=== PATIENT | female | born 1945 | race Caucasian/White ===

== ENCOUNTER 2019-11-27 03:46 | Observation (INO) ==
[2019-11-27 04:08] VITALS: BMI 34.0
--- NOTE | 2019-11-27 04:40 | DR.EXTPAIN ---
HPI Time seen Time Seen by Provider: 11/27/19 04:40 PCP Primary Care Physician: PEGGY HPI Comment HPI Comment: PATIENT IS 73YR OLD FEMALE IN ER WITH RIGHT SHOULDER PAIN AND RIGHT FOREHEAD BRUISING AFTER FALLING DOWN AT HOME AND HITTING HER RIGHT SIDE. BP ELEVATED IN ER. DENIES DIZZINESS OR CHEST PAIN. SHE SAID FALL TINY ACCIDENT. CANNOT MOVE HER RIGHT SHOULDER. NON COMPLAINT WITH BP MEDICATION. Complaint/Symptoms Chief Complaint Doctor Comments: FELL, RIGHT SHOULDER PAIN AND RIGHT FOREHEAD BRUISING. BP ELEVATED IN ER. Chief Complaint:: PT STATES SHE FELL AT HOME AND COMPLAINTS OF RIGHT SHOULDER PAIN THAT HASNT GOTTEN ANY BETTER SHE TOUGHT THAT IT WOULDVE GOTTEN BETTER BY NOW. DAUGHTER STATES SHE CALLED HER AROUND 0130 AM PT NOTED TO HAVE ELEVATED BP IN TRIAGE BUT FAMILY STATES NON COMPLIANT WITH BP MEDICATIONS, PT STATES SHE DIDNT TAKE BP MEDICATION LAST NIGHT UNK WHAT THE NAME OF BP MEDICATION WAS. Self Treatment fo Chief Complaint: N/A Nurses notes reviewed Nurses Notes Review: Yes Source History Provided: Patient Mode of arrival Mode of Arrival: Ambulatory Timing Onset of Chief Complaint: 11/27/19 Context History of: Arthritis Associated signs and symptoms Associated Signs and Symptoms: Pain, Swelling and Bruising PMH PMH Past Medical History: Yes Past Medical History: Anxiety, Arthritis, Depression, Dyslipidemia, Hypertensio n, Hypothyroidism and [place] Past Medical History Comment: BLOOD CLOT Past Surgical History: Yes Surgical History: Hysterectomy and Ortho Surgery Past Surgical History Comment: BILATERL KNEE Family History History of Family Medical Conditions: No (UNK) Social History Does patient currently use any type of tobacco product: No Have you used tobacco products in the last 12 months: No Type of Tobacco Use: None Does any household member use tobacco: No Alcohol Use: None Do you use any recreational Drugs:: No Lives With: Spouse Lives Where: Home infectious screening In the last 2 months have you had wt loss of >10#?: NO Have you had fever, night sweats or hemotysis?: No Have you traveled outside the country in the last 6 months?: No Isolation: Standard ROS Review of Systems Constitutional: No Symptoms Reported and See HPI; negative Fever, Weakness and Fatigue Eyes: See HPI; negative Eye Pain ENTM: No Symptoms Reported and See HPI; negative Nose Discharge and Nose Congestion Respiratoy: No Symptoms Reported and See HPI; negative Moist Cough, Short of Breath and Wheezing Cardiovascular: No Symptoms Reported and See HPI; negative Chest Pain, Palpitations and Syncope Gastrointestinal/Abdominal: No Symptoms Reported, See HPI and Abdominal Pain; negative Diarrhea, Nausea and Vomiting Genitourinary: No Symptoms Reported and See HPI; negative Dysuria and Hematuria Neurological: See HPI and Headache; negative Weakness and Dizziness Musculoskeletal: See HPI and Shoulder (RIGHT SHOULDER PAIN.) Integumentary: See HPI and Bruises; negative Change in Color, Rash and Juandice Hematologic/Lymphatic: See HPI and Easy Bruising; negative Swollen Glands Endocrine: No Symptoms Reported and See HPI; negative Increased Thirst and Increased Urine Psychiatric: No Symptoms Reported and See HPI All Other Systems: Reviewed and Negative PE Vital Signs Vitals: Temperature 97.0 F Pulse Rate 82 Respiratory Rate 18 Blood Pressure [Left Arm] 178/96 Blood Pressure 223/109 O2 Sat by Pulse Oximetry 91 General Limitations: No Limitations General Appearance: Alert and In No Apparent Distress Head Head Exam: Other (BRUISING AND TENDERNESS RIGHT FOREHEAD.) Eyes Eye exam: Normal Appearance; negative Scleral Icterus and Conjunctival Injection ENT ENT Exam: Normal Exam, Normal Oropharynx, Normal External Ear Exam and TM's Normal Bilaterally Neck Neck Exam: Normal Inspection and Trachea Midline; negative Tenderness and Lymphadenopathy Chest Chest Inspection: Normal Inspection and Symmetric Chest Wall Rise; negative Tenderness Respiratory Respiratory Exam: Normal Lung Sounds Bilat; negative Accessory Muscle Use, Chest Wall Tenderness and Respiratory Distress Respiratory Exam: Bilateral: Rhonchi and Lower: Rhonchi Cardiovascular Cardiovascular Exam: Regular Rate, Normal Rhythm and Normal Heart Sounds Abdominal Exam Abdominal Exam: Normal Inspection, Normal Bowel Sounds and Soft; negative Tenderness Extremities Extremities Exam: Normal Inspection and Tenderness (RIGHT SHOULDER SWOLLEN AND TENDER. ROM DECREASED.) Upper Extremities Shoulder Exam: Tenderness and Swelling; negative Full ROM Back Back Exam: Normal Inspection Neurological Neurological Exam: Alert, Oriented X3 and CN II-XII Intact; negative Motor Sensory Deficit Psychiatric Psychiatric Exam: Normal Affect and Normal Mood Skin Skin Exam: Erythema and Other (BRUISING.) MDM Differential Diagnosis Differential Diagnosis: Contusion, Fracture, Sprain and Other (CLOSED HEAD INJURY.) COURSE Treatment Treatment: SEE ORDERS. MORPHIN 4MG IV AND ZOFRAN 4MG IV AND CLONIDINE 0.1MG PO X2. Education/Counseling Education/Counseling: Patient Educated On: Diagnosis Education Comments: SEE ORDERS. ROR Labs Reviewed Result Diagrams: 11/29/19 05:22 11/29/19 05:22 XRAY XRAY Interpreted by: Radiologist (REPORT NOTED AND DISCUSSED WITH PATIENT.) and Self ( PER RADIOLOGIST.) Opioid Opioid Risk Tool Age (Rishabh box if 16-45): No History of Preadolescent Sexual Abuse: No Total: 0 Total Score Risk Category: Low Risk Copyright: Chuck RODAS predicting aberrant behaviors Diagnosis Discharge Problem: At risk for inadequate pain control Fracture of right shoulder Qualifiers: Encounter type: initial encounter Fracture type: closed Qualified Code(s): S42.91XA - Fracture of right shoulder girdle, part unspecified, initial encounter for closed fracture Contusion of scalp Qualifiers: Encounter type: initial encounter Qualified Code(s): S00.03XA - Contusion of scalp, initial encounter Hypertension Qualifiers: Hypertension type: essential hypertension Qualified Code(s): I10 - Essential (primary) hypertension Instructions Forms: Excuse From Work Patient Portal
[2019-11-27] MEDS ORDERED: CATAPRES TAB 0.1 MG PO ONE ×2 (05:02→05:52)
[2019-11-27] MEDS ORDERED: CATAPRES TAB 0.1 MG ONE ×2 (05:09→05:53)
--- NOTE | 2019-11-27 06:01 | RAD ---
HISTORYFall, right shoulder painSTUDYSHOULDER, RIGHT two viewsCOMPARISONNoneFINDINGSThe clavicle, AC joint, scapula, and glenohumeral joints are intact. There is a transverse fracture of the humeral neck with medial displacement of the distal fracture fragment. There is also avulsion of the greater tuberosity.IMPRESSIONDisplaced transverse fracture humeral neckAvulsion fracture greater tuberosity of the humerusElectronically signed by: KOREY CONTRERAS (Nov 27, 2019 06:00:00)
--- NOTE | 2019-11-27 06:03 | CT ---
CT head without contrastIndication: Right shoulder pain after fall. HypertensionTECHNIQUEAxial images from the skullbase to the vertex without contrast. Coronal and sagittal reformats provided.COMPARISONApril 2017 head CTFINDINGSReview of bone windows shows no osseous lesion. The visualized paranasal sinuses and mastoid air cells are clear. There is no acute intracranial hemorrhage, mass or mass effect. No extra-axial fluid collection or abnormal area of hypoattenuation to suggest acute infarction is seen. 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 Scattered periventricular white matter changes are noted.IMPRESSION:1. No acute intracranial hemorrhage2. Atrophy and microangiopathy, similar to the priorElectronically signed by: PHAN SCHREIBER (Nov 27, 2019 06:01:50)
[2019-11-27] MEDS ORDERED: MORPHINE SULFATE INJ 4 MG IM ONE (06:37)
[2019-11-27] MEDS ORDERED: ZOFRAN INJ 4 MG VIAL IM ONE (06:38)
[2019-11-27] MEDS ORDERED: ZOFRAN INJ 4 MG VIAL ONE (06:40)
[2019-11-27] MEDS ORDERED: MORPHINE SULFATE INJ 4 MG ONE (06:41)
[2019-11-27] MEDS ORDERED: ZOFRAN INJ 4 MG VIAL IVP PRN (08:03)
[2019-11-27] MEDS ORDERED: MORPHINE SULFATE INJ 2 MG INJ IVP PRN (08:03)
[2019-11-27] MEDS ORDERED: PERCOCET TAB 5/325 MG PO PRN (10:48)
[2019-11-27] MEDS ORDERED: TORADOL 30 MG VIAL ONE (11:08)
[2019-11-27] MEDS: TORADOL 30 MG VIAL IVP SCH ×3 (11:26→22:09)
[2019-11-27] MEDS: NS 1000 ML 1,000 ML IV SCH ×3 (11:26→22:09)
[2019-11-27 13:28] LABS: BASOPHILS % (AUTO) 0.3 % (0.2-1.0); EOSINOPHILS # (AUTO) 0.1 x10^3/uL (0.0-0.2); EOSINOPHILS % (AUTO) 0.9 % (0.9-2.9); HEMATOCRIT 31.6 % (36.0-47.0); HEMOGLOBIN 10.6 g/dL (12.0-16.0); LYMPHOCYTES # (AUTO) 1.7 X10^3/uL (1.3-2.9); LYMPHOCYTES % (AUTO) 19.1 % (21.0-51.0); MEAN CORPUSCULAR HEMOGLOBIN 29.9 pg (27.0-34.0); MEAN CORPUSCULAR HGB CONC 33.6 g/dL (33.0-35.0); MEAN CORPUSCULAR VOLUME 89.1 fL (80.0-100.0); MEAN PLATELET VOLUME 8.9 fL (7.4-11.0); MONOCYTES % (AUTO) 11.4 % (0.0-13.0); NEUTROPHILS # (AUTO) 6.2 x10^3/uL (2.2-4.8); NEUTROPHILS % (AUTO) 68.3 % (42.0-75.0); PLATELET COUNT 223 X10^3/uL (150.0-450.0); RED BLOOD COUNT 3.54 X10^6/uL (3.5-5.4); RED CELL DISTRIBUTION WIDTH 16.6 % (11.6-16.5); WHITE BLOOD COUNT 9.1 X10^3/uL (3.6-10.0)
[2019-11-27 13:36] LABS: ALBUMIN 2.9 g/dL (3.4-5.0); CALCIUM 7.7 mg/dL (8.5-10.1); CARBON DIOXIDE 27.2 mmol/L (21-32); COR CA(FOR HYPOALB) 8.6 mg/dL (8.5-10.1); CREATININE 1.5 mg/dL (0.55-1.02); TOTAL PROTEIN 6.2 g/dL (6.4-8.2)
[2019-11-27] MEDS: LOVENOX INJ 30 MG SYR SC SCH (14:50)
--- NOTE | 2019-11-27 22:50 | DR.H&P ---
H&P - History & Physical for Day of: H&P Date: 11/27/19 - Chief Complaint Chief Complaint: RIGHT SHOULDER PAIN - History of Present Illness History of Present Illness: IS A 73 YEAR OLD PATIENT OF OURS WHO PRESENTED TO THE ER WITH COMPLAINTS OF RIGHT SHOULDER PAIN AFTER A FALL ONE NIGHT PRIOR TO ARRIVAL. ON ARRIVAL TO THE ER, VITALS WERE 97.0-82-20-91%RA-223/109. PATIENT DOES HAVE A HISTORY OF HTN AND REPORTS COMPLIANCE WITH HER MEDICATIONS. LABS WERE OBTAINED. ABNORMAL LAB VALUES INCLUDE THE FOLLOWING: HGB 10.6, HCT 31.6, BUN 23, CREATININE 1.50, GLUCOSE 126, CALCIUM 7.7, TOTAL PROTEIN 6.2, ALBUMIN 2.9. A BRAIN CT WAS OBTAINED AND REVEALED: 1. No acute intracranial hemorrhage 2. Atrophy and microangiopathy, similar to the prior. A RIGHT SHOULDER XRAY WAS OBTAINED AND REVEALED: Displaced transverse fracture humeral neck. Avulsion fracture greater tuberosity of the humerus. SHE WAS GIVEN MORPHINE 4MG IM X 1, ZOFRAN 4MG IM X 1, AND CATAPRES 0.1MG PO X 2 DOSES. ONLY SLIGHT IMPROVEMENT IN PAIN NOTED. SHOULDER WAS IMMOBILIZED AND PATIENT WAS ADMITTED TO THE HOSPITALS FOR FURTHER EVALUATION AND TREATMENT OF RIGHT SHOULDER FRACTURE AND INTRACTABLE PAIN. SHE WAS STARTED ON NS AT KVO, ZOFRAN 4MG IV Q8H PRN, MORPHINE 2MG IV Q4H PRN, LOVENOX 30MG SC DAILY, TORADOL 30MG IV Q6H PRN, AND PERCOCET 5/325MG PO Q6H PRN. OTHERWISE, WE WILL FOLLOW UP WITH AM LABS AND CONTINUE TO MONITOR. - Past Medical History Past Medical History: NE, Hypertension, Dyslipidemia, Depression, Anxiety, Hypothyroidism, Arthritis - Past Surgical History Surgical History: Hysterectomy, Ortho Surgery - Social History Does patient currently use any type of tobacco product: No (quit 23 years ago) Have you used tobacco products in the last 12 months: No Type of Tobacco Use: None Does any household member use tobacco: No Alcohol Use: None - Medications Home Medications: atorvastatin [From Lipitor] Allergy (Verified 11/27/19 04:08) CONTINUE taking the following medications hydroxychloroquine 200 mg PO BID 11/27/19 [History] - Review of Systems Constitutional: Weakness Eyes: No Symptoms Reported ENT: No Symptoms Reported Respiratory: No Symptoms Reported Cardiovascular: Light Headedness Gastrointestinal: No Symptoms Reported Genitourinary: No Symptoms Reported Musculoskeletal: See HPI, Shoulder Pain (RIGHT SHOULDER PAIN ) Skin: No Symptoms Reported Neurological: Weakness - Physical Exam Vital Signs: Temperature 98.6 F Pulse Rate [Brachial] 72 Pulse Rate 82 Respiratory Rate 15 Blood Pressure [Left Arm] 108/54 Blood Pressure 223/109 O2 Sat by Pulse Oximetry 98 Oriented: Normal Eyes: Normal Ear: Normal Nose: Normal Throat: Normal Respiratory: Diminished Throughout Cardiovascular: Normal : Normal Auscultation: Bowel Sounds: Normal Palpation: Normal Tenderness: Normal Skin: Normal Musculoskeletal: Normal Psychiatric: Normal Mood Description: Calm Affect: Normal Speech Pattern: Clear - Assessment/Plan (1) Shoulder fracture, right Qualifiers: Encounter type: initial encounter Fracture type: closed Qualified Code(s): S42.91XA - Fracture of right shoulder girdle, part unspecified, initial encounter for closed fracture Status: Acute Plan: ADMIT, NS AT KVO, ZOFRAN 4MG IV Q8H PRN, MORPHINE 2MG IV Q4H PRN, LOVENOX 30MG SC DAILY, TORADOL 30MG IV Q6H PRN, AND PERCOCET 5/325MG PO Q6H PRN. (2) Intractable pain Status: Acute - Allergies Allergies/Adverse Reactions: Allergies Allergy/AdvReac Type Severity Reaction Status Date / Time atorvastatin [From Lipitor] Allergy Verified 11/27/19 04:08
[2019-11-28 04:59] LABS: BILIRUBIN,URINE NEGATIVE (NEGATIVE); BLOOD/HEMOGLOBIN,URINE 1+ (NEGATIVE); GLUCOSE, URINE NEGATIVE (NEGATIVE); KETONES,URINE NEGATIVE (NEGATIVE); LEUKOCYTE ESTERASE ,URINE 1+ (NEGATIVE); NITRITES,URINE NEGATIVE (NEGATIVE); PROTEIN,URINE 1+ (NEGATIVE); UROBILINOGEN,URINE NORMAL (NORMAL)
[2019-11-28 05:05] LABS: APPEARANCE,URINE CLEAR (CLEAR); BACTERIA,URINE TRACE /HPF (NEGATIVE); COLOR,URINE YELLOW (YELLOW); HYALINE CASTS, URINE FEW /LPF (NEGATIVE); SQUAMOUS EPITHELIAL CELL,UR FEW /HPF (NEGATIVE)
[2019-11-28] MEDS: TORADOL 30 MG VIAL IVP SCH ×4 (05:40→23:04)
[2019-11-28 06:23] LABS: BASOPHILS % (AUTO) 0.4 % (0.2-1.0); EOSINOPHILS # (AUTO) 0.3 x10^3/uL (0.0-0.2); EOSINOPHILS % (AUTO) 3.2 % (0.9-2.9); HEMATOCRIT 33.7 % (36.0-47.0); HEMOGLOBIN 11.3 g/dL (12.0-16.0); LYMPHOCYTES # (AUTO) 2.1 X10^3/uL (1.3-2.9); LYMPHOCYTES % (AUTO) 25.2 % (21.0-51.0); MEAN CORPUSCULAR HEMOGLOBIN 30.2 pg (27.0-34.0); MEAN CORPUSCULAR HGB CONC 33.4 g/dL (33.0-35.0); MEAN CORPUSCULAR VOLUME 90.4 fL (80.0-100.0); MEAN PLATELET VOLUME 9.4 fL (7.4-11.0); MONOCYTES # (AUTO) 0.6 x10^3/uL (0.3-0.8); MONOCYTES % (AUTO) 7.3 % (0.0-13.0); NEUTROPHILS # (AUTO) 5.4 x10^3/uL (2.2-4.8); NEUTROPHILS % (AUTO) 63.9 % (42.0-75.0); PLATELET COUNT 201 X10^3/uL (150.0-450.0); RED BLOOD COUNT 3.73 X10^6/uL (3.5-5.4); RED CELL DISTRIBUTION WIDTH 16.6 % (11.6-16.5); WHITE BLOOD COUNT 8.5 X10^3/uL (3.6-10.0)
[2019-11-28 06:46] LABS: ALANINE AMINOTRANSFERASE 16 Units/L (12-78); ALKALINE PHOSPHATASE 71 Units/L (46-116); ASPARTATE AMINO TRANSFERASE 24 Units/L (15-37); BLOOD UREA NITROGEN 32 mg/dL (7-18); CALCIUM 8.3 mg/dL (8.5-10.1); CARBON DIOXIDE 24.2 mmol/L (21-32); CHLORIDE 103 mmol/L (98-107); COR CA(FOR HYPOALB) 9.1 mg/dL (8.5-10.1); CREATININE 2.08 mg/dL (0.55-1.02); SODIUM 137 mmol/L (136-145); TOTAL PROTEIN 6.8 g/dL (6.4-8.2); eGFR NON BLACK RACES 25 (>60)
[2019-11-28] MEDS: LOVENOX INJ 30 MG SYR SC SCH (08:09)
[2019-11-28] MEDS: NS 1000 ML 1,000 ML IV SCH ×3 (10:03→23:04)
[2019-11-28] MEDS: MILK OF MAGNESIA PO SCH ×2 (11:08→21:00)
[2019-11-28] MEDS ORDERED: COLACE CAP 100 MG PO SCH (21:00)
[2019-11-29] MEDS: TORADOL 30 MG VIAL IVP SCH ×2 (05:56→10:44)
[2019-11-29 05:58] LABS: BASOPHILS % (AUTO) 0.3 % (0.2-1.0); EOSINOPHILS # (AUTO) 0.3 x10^3/uL (0.0-0.2); EOSINOPHILS % (AUTO) 3.3 % (0.9-2.9); HEMATOCRIT 30.4 % (36.0-47.0); HEMOGLOBIN 10.2 g/dL (12.0-16.0); LYMPHOCYTES # (AUTO) 1.6 X10^3/uL (1.3-2.9); LYMPHOCYTES % (AUTO) 16.5 % (21.0-51.0); MEAN CORPUSCULAR HEMOGLOBIN 30.5 pg (27.0-34.0); MEAN CORPUSCULAR HGB CONC 33.7 g/dL (33.0-35.0); MEAN CORPUSCULAR VOLUME 90.6 fL (80.0-100.0); MEAN PLATELET VOLUME 9.5 fL (7.4-11.0); MONOCYTES % (AUTO) 9.6 % (0.0-13.0); NEUTROPHILS # (AUTO) 7.1 x10^3/uL (2.2-4.8); NEUTROPHILS % (AUTO) 70.3 % (42.0-75.0); PLATELET COUNT 198 X10^3/uL (150.0-450.0); RED BLOOD COUNT 3.36 X10^6/uL (3.5-5.4); RED CELL DISTRIBUTION WIDTH 16.2 % (11.6-16.5)
[2019-11-29 06:25] LABS: ALBUMIN 2.7 g/dL (3.4-5.0); CALCIUM 7.8 mg/dL (8.5-10.1); CARBON DIOXIDE 24.6 mmol/L (21-32); COR CA(FOR HYPOALB) 8.8 mg/dL (8.5-10.1); CREATININE 1.5 mg/dL (0.55-1.02); TOTAL PROTEIN 6.4 g/dL (6.4-8.2)
--- NOTE | 2019-11-29 10:40 | PCM.PROG ---
Progress Note - Progress Note for Day of Date of Exam: 11/28/19 - Subjective Subjective: IS BEING TREATED FOR INTRACTABLE PAIN DUE TO A RIGHT SHOULDER FRACTURE. TODAY, SHE IS ALERT AND ORIENTED, LYING IN BED ON MORNING ROUNDS. SHE CONTINUES WITH RIGHT SHOULDER PAIN BUT REPORTS SLIGHT IMPROVEMENT TODAY. ON EXAMINATION, HEART IS REGULAR IN RATE AND RHYTHM. BILATERAL LUNGS ARE NOTED WITH DIMINISHED LUNG SOUNDS THROUGHOUT. ABDOMEN IS ROUND, SOFT, AND NON- TENDER WITH NORMAL BOWEL SOUNDS NOTED IN ALL QUADRANTS. RIGHT ARM IS NOTED TO BE RESTING IN A SLING WITH AN IMMOBILIZER. NORMAL PULSES NOTED. HER VITALS THIS MORNING ARE: 97.9-76-20-95%-143/80. LABS WERE OBTAINED. ABNORMAL LAB VALUES INCLUDE THE FOLLOWING: HGB 11.3, HCT 33.7, BUN 32, CREATININE 2.08, GLUCOSE 106, CALCIUM 8.3, ALBUMIN 3.0. SHE IS CURRENTLY RECEIVING NS AT KVO, ZOFRAN 4MG IV Q8H PRN, MORPHINE 2MG IV Q4H PRN, LOVENOX 30MG SC DAILY, TORADOL 30MG IV Q6H PRN, AND PERCOCET 5/325MG PO Q6H PRN. WE WILL INCREASE HER IV FLUIDS TO 75ML/HR TODAY AND CONSULT WITH , ORTHOPEDIC SURGEON. OTHERWISE, WE WILL FOLLOW UP WITH AM LABS AND CONTINUE TO MONITOR. - Past Medical Family Social History Past Med/Fam/Surg Hx: No changes since H&P Allergies: Allergies atorvastatin [From Lipitor] Allergy (Verified 11/27/19 04:08) - Review of Systems ROS: No change since H&P - Vital Signs and I&O's Vital Signs: Temperature 98.2 F Pulse Rate [Brachial] 78 Pulse Rate 82 Respiratory Rate 20 Blood Pressure [Left Arm] 155/97 Blood Pressure 223/109 O2 Sat by Pulse Oximetry 93 Intake and Output: Intake & Output 11/26/19 11/27/19 11/28/19 11/29/19 11:59 11:59 11:59 11:59 Intake Total 1010 / 1010 3420 / 3420 Balance 1010 / 1010 3420 / 3420 - Physical Exam Oriented: Normal Eyes: Normal Ear: Normal Nose: Normal Throat: Normal Respiratory: Generalized, Diminished Cardiovascular: Normal : Normal Auscultation: Bowel Sounds: Normal Palpation: Normal Tenderness: Normal Skin: Normal Musculoskeletal: Normal Psychiatric: Normal Mood Description: Calm Affect: Normal Speech Pattern: Clear, Appropriate - Laboratory and Diagnostics Result Diagrams: 11/29/19 05:22 11/29/19 05:22 Labs: Laboratory WBC 10.0 X10^3/uL (3.6-10.0) 11/29/19 05:22 RBC 3.36 X10^6/uL (3.5-5.4) L 11/29/19 05:22 Hgb 10.2 g/dL (12.0-16.0) L 11/29/19 05:22 Hct 30.4 % (36.0-47.0) L 11/29/19 05:22 MCV 90.6 fL (80.0-100.0) 11/29/19 05:22 MCH 30.5 pg (27.0-34.0) 11/29/19 05:22 MCHC 33.7 g/dL (33.0-35.0) 11/29/19 05:22 RDW 16.2 % (11.6-16.5) 11/29/19 05:22 Plt Count 198 X10^3/uL (150.0-450.0) 11/29/19 05:22 MPV 9.5 fL (7.4-11.0) 11/29/19 05:22 Neut % (Auto) 70.3 % (42.0-75.0) 11/29/19 05:22 Lymph % (Auto) 16.5 % (21.0-51.0) L 11/29/19 05:22 [place] % (Auto) 9.6 % (0.0-13.0) 11/29/19 05:22 Eos % (Auto) 3.3 % (0.9-2.9) H 11/29/19 05:22 Baso % (Auto) 0.3 % (0.2-1.0) 11/29/19 05:22 Neut # (Auto) 7.1 x10^3/uL (2.2-4.8) H 11/29/19 05:22 Lymph # (Auto) 1.6 X10^3/uL (1.3-2.9) 11/29/19 05:22 [place] # (Auto) 1.0 x10^3/uL (0.3-0.8) H 11/29/19 05:22 Eos # (Auto) 0.3 x10^3/uL (0.0-0.2) H 11/29/19 05:22 Baso # (Auto) 0.0 X10^3/uL (0.0-0.1) 11/29/19 05:22 Absolute Nucleated RBC 0.0 /100WBC 11/29/19 05:22 Sodium 136 mmol/L (136-145) 11/29/19 05:22 Corrected Sodium 136 mmol/L (136-145) 11/29/19 05:22 Potassium 3.9 mmol/L (3.5-5.1) 11/29/19 05:22 Chloride 103 mmol/L (98-107) 11/29/19 05:22 Carbon Dioxide 24.6 mmol/L (21-32) 11/29/19 05:22 BUN 26 mg/dL (7-18) H 11/29/19 05:22 Creatinine 1.50 mg/dL (0.55-1.02) H 11/29/19 05:22 Est GFR (MDRD) Af Amer 44 (>60) L 11/29/19 05:22 Est GFR (MDRD) Non-Af 36 (>60) L 11/29/19 05:22 Glucose 120 mg/dL (65-99) H 11/29/19 05:22 Calcium 7.8 mg/dL (8.5-10.1) L 11/29/19 05:22 Corrected Calcium 8.8 mg/dL (8.5-10.1) 11/29/19 05:22 Total Bilirubin 0.30 mg/dL (0.2-1.0) 11/29/19 05:22 AST 22 Units/L (15-37) 11/29/19 05:22 ALT 17 Units/L (12-78) 11/29/19 05:22 Alkaline Phosphatase 74 Units/L (46-116) 11/29/19 05:22 Total Protein 6.4 g/dL (6.4-8.2) 11/29/19 05:22 Albumin 2.7 g/dL (3.4-5.0) L 11/29/19 05:22 Globulin 3.7 g/dL (2.5-4.5) 11/29/19 05:22 Albumin/Globulin Ratio 0.7 Ratio (1.1-2.1) L 11/29/19 05:22 Specimen Type Clean catch urine 11/28/19 04:48 Urine Color Yellow (YELLOW) 11/28/19 04:48 Urine Appearance Clear (CLEAR) 11/28/19 04:48 Urine pH 5.0 (5.0 - 8.0) 11/28/19 04:48 Ur Specific [place] 1.015 (1.000-1.030) 11/28/19 04:48 Urine Protein 1+ (NEGATIVE) 11/28/19 04:48 Urine Glucose (UA) Negative (NEGATIVE) 11/28/19 04:48 Urine Ketones Negative (NEGATIVE) 11/28/19 04:48 Urine Occult Blood 1+ (NEGATIVE) 11/28/19 04:48 Urine Nitrite Negative (NEGATIVE) 11/28/19 04:48 Urine Bilirubin Negative (NEGATIVE) 11/28/19 04:48 Urine Urobilinogen Normal (NORMAL) 11/28/19 04:48 Ur Leukocyte Esterase 1+ (NEGATIVE) 11/28/19 04:48 Urine RBC 3-5 /HPF (0-3) A 11/28/19 04:48 Urine WBC 0-2 /HPF (0-5) 11/28/19 04:48 Ur Squamous Epith Cells Few /HPF (NEGATIVE) 11/28/19 04:48 Urine Bacteria Trace /HPF (NEGATIVE) 11/28/19 04:48 Hyaline Casts Few /LPF (NEGATIVE) 11/28/19 04:48 Ur Culture Indicated? No/not indicated 11/28/19 04:48 - Plan (1) Shoulder fracture, right Status: Acute Qualifiers: Encounter type: initial encounter Fracture type: closed Qualified Code(s): S42.91XA - Fracture of right shoulder girdle, part unspecified, initial encounter for closed fracture Plan: NS AT 75 ML/HR, ZOFRAN 4MG IV Q8H PRN, MORPHINE 2MG IV Q4H PRN, LOVENOX 30MG SC DAILY, TORADOL 30MG IV Q6H PRN, AND PERCOCET 5/325MG PO Q6H PRN. (2) Intractable pain Status: Acute
[2019-11-29] MEDS: LOVENOX INJ 30 MG SYR SC SCH (10:45)
[2019-11-29] MEDS: MILK OF MAGNESIA PO SCH (10:46)
[2019-11-29 12:36] VITALS: BP 158/62
[2019-11-29] MEDS: NS 1000 ML 1,000 ML IV SCH (12:40)
== END 2019-11-29 15:50 | disposition home health service (06) ==
LOC: ER 03:46 → MED/SURG 03:46
PROVIDERS: ADMIT Internal Medicine; ATTEND Internal Medicine
DX: S00.03XA Contusion of scalp, initial encounter; R94.4 Abnormal results of kidney function studies; S42.251A Displaced fracture of greater tuberosity of right humerus, initial encounter for closed fracture; Y92.9 Unspecified place or not applicable; R26.89 Other abnormalities of gait and mobility; W18.39XA Other fall on same level, initial encounter; S42.291A Other displaced fracture of upper end of right humerus, initial encounter for closed fracture; I10 Essential (primary) hypertension
CPT/HCPCS: 36415; 70450; 73030; 80053; 81001; 85025; 94760; 96360; 96361; 96365; 96372; 96374; 97162; 97166; 97535; 99284; A4222; G0378; J1650; J1885; J2270; J2405; J7030

== ENCOUNTER 2023-01-07 11:13 | Inpatient (IN) ==
--- NOTE | 2023-01-07 11:17 | DR.GENAD ---
HPI Time Seen Time Seen by Provider: 01/07/23 11:17 PMH PMH Past Medical History: Anxiety, Arthritis, Depression, Dyslipidemia, Hypertension, Hypothyroidism and [place] Past Surgical History: Yes Surgical History: Hysterectomy and Ortho Surgery Social History Do you use any recreational Drugs:: No PE Vital Signs Vitals: Pulse Rate 61 Respiratory Rate 17 Blood Pressure [Left Arm] 158/62 Blood Pressure 175/84 O2 Sat by Pulse Oximetry 100 ROR Labs Reviewed Result Diagrams: 01/07/23 11:45 01/07/23 11:45 Laboratory: WBC 7.0 X10^3/uL (3.6-10.0) 01/07/23 11:45 RBC 4.11 X10^6/uL (3.5-5.4) 01/07/23 11:45 Hgb 11.8 g/dL (12.0-16.0) L 01/07/23 11:45 Hct 36.3 % (36.0-47.0) 01/07/23 11:45 MCV 88.4 fL (80.0-100.0) 01/07/23 11:45 MCH 28.6 pg (27.0-34.0) 01/07/23 11:45 MCHC 32.4 g/dL (33.0-35.0) L 01/07/23 11:45 RDW 14.7 % (11.6-16.5) 01/07/23 11:45 Plt Count 227 X10^3/uL (150.0-450.0) 01/07/23 11:45 MPV 9.7 fL (7.4-11.0) 01/07/23 11:45 Neut % (Auto) 71.9 % (42.0-75.0) 01/07/23 11:45 Lymph % (Auto) 15.2 % (21.0-51.0) L 01/07/23 11:45 [place] % (Auto) 9.1 % (0.0-13.0) 01/07/23 11:45 Eos % (Auto) 3.3 % (0.9-2.9) H 01/07/23 11:45 Baso % (Auto) 0.5 % (0.2-1.0) 01/07/23 11:45 Neut # (Auto) 5.1 x10^3/uL (2.2-4.8) H 01/07/23 11:45 Lymph # (Auto) 1.1 X10^3/uL (1.3-2.9) L 01/07/23 11:45 [place] # (Auto) 0.6 x10^3/uL (0.3-0.8) 01/07/23 11:45 Eos # (Auto) 0.2 x10^3/uL (0.0-0.2) 01/07/23 11:45 Baso # (Auto) 0.0 X10^3/uL (0.0-0.1) 01/07/23 11:45 Absolute Nucleated RBC 0.1 /100WBC 01/07/23 11:45 Sodium 139 mmol/L (136-145) 01/07/23 11:45 Corrected Sodium TNP 01/07/23 11:45 Potassium 3.5 mmol/L (3.5-5.1) 01/07/23 11:45 Chloride 104 mmol/L (98-107) 01/07/23 11:45 Carbon Dioxide 28.8 mmol/L (21-32) 01/07/23 11:45 BUN 16 mg/dL (7-18) 01/07/23 11:45 Creatinine 1.47 mg/dL (0.55-1.02) H 01/07/23 11:45 Est GFR (MDRD) Af Amer 44 (>60) L 01/07/23 11:45 Est GFR (MDRD) Non-Af 36 (>60) L 01/07/23 11:45 Glucose 102 mg/dL (65-99) H 01/07/23 11:45 Calcium 8.4 mg/dL (8.5-10.1) L 01/07/23 11:45 Corrected Calcium 9.4 mg/dL (8.5-10.1) 01/07/23 11:45 Total Bilirubin 0.30 mg/dL (0.2-1.0) 01/07/23 11:45 AST 15 Units/L (15-37) 01/07/23 11:45 ALT 10 Units/L (12-78) L 01/07/23 11:45 Alkaline Phosphatase 132 Units/L (46-116) H 01/07/23 11:45 Total Protein 6.2 g/dL (6.4-8.2) L 01/07/23 11:45 Albumin 2.8 g/dL (3.4-5.0) L 01/07/23 11:45 Globulin 3.4 g/dL (2.5-4.5) 01/07/23 11:45 Albumin/Globulin Ratio 0.8 Ratio (1.1-2.1) L 01/07/23 11:45 Specimen Type Clean catch urine 01/07/23 12:00 Urine Color Yellow (YELLOW) 01/07/23 12:00 Urine Appearance Clear (CLEAR) 01/07/23 12:00 Urine pH 6.0 (5.0 - 8.0) 01/07/23 12:00 Ur Specific [place] 1.025 (1.000-1.030) 01/07/23 12:00 Urine Protein Negative (NEGATIVE) 01/07/23 12:00 Urine Glucose (UA) Negative (NEGATIVE) 01/07/23 12:00 Urine Ketones Negative (NEGATIVE) 01/07/23 12:00 Urine Blood Negative (NEGATIVE) 01/07/23 12:00 Urine Nitrite Negative (NEGATIVE) 01/07/23 12:00 Urine Bilirubin Negative (NEGATIVE) 01/07/23 12:00 Urine Urobilinogen Normal (NORMAL) 01/07/23 12:00 Ur Leukocyte Esterase Negative (NEGATIVE) 01/07/23 12:00 Opioid Opioid Risk Tool Age (Rishabh box if 16-45): No History of Preadolescent Sexual Abuse: No Total: 0 Total Score Risk Category: Low Risk Copyright: Chuck RODAS predicting aberrant behaviors Discharge Plan Discharge Plan Patient Disposition: 01 HOME, SELF-CARE Condition: Stable Orders to Discharge Patient Discharge Orders: Transfer (Routine); Ordered 01/07/23 Ordered By: RONI POLLARD
[2023-01-07 12:14] LABS: BILIRUBIN,URINE NEGATIVE (NEGATIVE); BLOOD/HEMOGLOBIN,URINE NEGATIVE (NEGATIVE); GLUCOSE, URINE NEGATIVE (NEGATIVE); KETONES,URINE NEGATIVE (NEGATIVE); LEUKOCYTE ESTERASE ,URINE NEGATIVE (NEGATIVE); NITRITES,URINE NEGATIVE (NEGATIVE); PROTEIN,URINE NEGATIVE (NEGATIVE); UROBILINOGEN,URINE NORMAL (NORMAL)
[2023-01-07 12:14] LABS: BASOPHILS % (AUTO) 0.5 % (0.2-1.0); EOSINOPHILS # (AUTO) 0.2 x10^3/uL (0.0-0.2); EOSINOPHILS % (AUTO) 3.3 % (0.9-2.9); HEMATOCRIT 36.3 % (36.0-47.0); HEMOGLOBIN 11.8 g/dL (12.0-16.0); LYMPHOCYTES # (AUTO) 1.1 X10^3/uL (1.3-2.9); LYMPHOCYTES % (AUTO) 15.2 % (21.0-51.0); MEAN CORPUSCULAR HEMOGLOBIN 28.6 pg (27.0-34.0); MEAN CORPUSCULAR HGB CONC 32.4 g/dL (33.0-35.0); MEAN CORPUSCULAR VOLUME 88.4 fL (80.0-100.0); MEAN PLATELET VOLUME 9.7 fL (7.4-11.0); MONOCYTES # (AUTO) 0.6 x10^3/uL (0.3-0.8); MONOCYTES % (AUTO) 9.1 % (0.0-13.0); NEUTROPHILS # (AUTO) 5.1 x10^3/uL (2.2-4.8); NEUTROPHILS % (AUTO) 71.9 % (42.0-75.0); RED BLOOD COUNT 4.11 X10^6/uL (3.5-5.4); RED CELL DISTRIBUTION WIDTH 14.7 % (11.6-16.5)
[2023-01-07 12:16] LABS: APPEARANCE,URINE CLEAR (CLEAR); COLOR,URINE YELLOW (YELLOW)
[2023-01-07 12:23] LABS: ALANINE AMINOTRANSFERASE 10 Units/L (12-78); ALBUMIN 2.8 g/dL (3.4-5.0); ALKALINE PHOSPHATASE 132 Units/L (46-116); ASPARTATE AMINO TRANSFERASE 15 Units/L (15-37); BLOOD UREA NITROGEN 16 mg/dL (7-18); CALCIUM 8.4 mg/dL (8.5-10.1); CARBON DIOXIDE 28.8 mmol/L (21-32); CHLORIDE 104 mmol/L (98-107); COR CA(FOR HYPOALB) 9.4 mg/dL (8.5-10.1); CREATININE 1.47 mg/dL (0.55-1.02); SODIUM 139 mmol/L (136-145); TOTAL PROTEIN 6.2 g/dL (6.4-8.2); eGFR NON BLACK RACES 36 (>60)
[2023-01-07] MEDS: NS 1,000 ML IV 1,000 ML IV SCH (15:18)
[2023-01-08] MEDS: NS 1,000 ML IV 1,000 ML IV SCH (04:54)
[2023-01-08 05:06] LABS: BASOPHILS % (AUTO) 0.6 % (0.2-1.0); EOSINOPHILS # (AUTO) 0.3 x10^3/uL (0.0-0.2); HEMOGLOBIN 10.5 g/dL (12.0-16.0); LYMPHOCYTES # (AUTO) 1.4 X10^3/uL (1.3-2.9); LYMPHOCYTES % (AUTO) 19.7 % (21.0-51.0); MEAN CORPUSCULAR HEMOGLOBIN 28.8 pg (27.0-34.0); MEAN CORPUSCULAR HGB CONC 32.9 g/dL (33.0-35.0); MEAN CORPUSCULAR VOLUME 87.6 fL (80.0-100.0); MEAN PLATELET VOLUME 9.6 fL (7.4-11.0); MONOCYTES # (AUTO) 0.7 x10^3/uL (0.3-0.8); NEUTROPHILS # (AUTO) 4.6 x10^3/uL (2.2-4.8); NEUTROPHILS % (AUTO) 65.7 % (42.0-75.0); RED BLOOD COUNT 3.65 X10^6/uL (3.5-5.4); RED CELL DISTRIBUTION WIDTH 15.1 % (11.6-16.5); WHITE BLOOD COUNT 6.9 X10^3/uL (3.6-10.0)
[2023-01-08 05:13] LABS: ALANINE AMINOTRANSFERASE 8 Units/L (12-78); ALBUMIN 2.4 g/dL (3.4-5.0); ALKALINE PHOSPHATASE 118 Units/L (46-116); ASPARTATE AMINO TRANSFERASE 14 Units/L (15-37); BLOOD UREA NITROGEN 16 mg/dL (7-18); CALCIUM 7.9 mg/dL (8.5-10.1); CARBON DIOXIDE 27.1 mmol/L (21-32); CHLORIDE 107 mmol/L (98-107); COR CA(FOR HYPOALB) 9.2 mg/dL (8.5-10.1); CREATININE 1.42 mg/dL (0.55-1.02); SODIUM 141 mmol/L (136-145); TOTAL PROTEIN 5.4 g/dL (6.4-8.2); eGFR NON BLACK RACES 38 (>60)
[2023-01-08] MEDS ORDERED: ONDANSETRON ODT PO PRN (10:36)
[2023-01-08] MEDS ORDERED: DRUG FILTER EXTENSION SET ONE (10:37)
[2023-01-08] MEDS: CLINIMIX IV SCH ×2 (10:47)
[2023-01-08] MEDS: TPN ELECTROLYTES IV SCH ×2 (10:47)
[2023-01-08] MEDS ORDERED: PHARMACY CONSULT - TPN XX SCH (11:00)
[2023-01-08] MEDS: NEURONTIN CAP 300 MG PO SCH ×2 (14:40→21:55)
[2023-01-08] MEDS: CRESTOR TAB 10 MG PO SCH (21:55)
[2023-01-08] MEDS: TOPAMAX PO SCH (21:56)
[2023-01-08] MEDS: PLAQUENIL PO SCH (21:56)
[2023-01-09] MEDS ORDERED: DEXTROSE 10% 1,000 ML IV PRN (05:01)
[2023-01-09] MEDS ORDERED: NovoLIN R (or HumuLIN R) SUBCUT PRN (05:01)
[2023-01-09 05:37] LABS: BASOPHILS % (AUTO) 0.4 % (0.2-1.0); EOSINOPHILS # (AUTO) 0.2 x10^3/uL (0.0-0.2); EOSINOPHILS % (AUTO) 2.5 % (0.9-2.9); HEMATOCRIT 31.1 % (36.0-47.0); HEMOGLOBIN 10.3 g/dL (12.0-16.0); LYMPHOCYTES # (AUTO) 1.6 X10^3/uL (1.3-2.9); LYMPHOCYTES % (AUTO) 21.1 % (21.0-51.0); MEAN CORPUSCULAR HGB CONC 33.3 g/dL (33.0-35.0); MEAN CORPUSCULAR VOLUME 87.1 fL (80.0-100.0); MONOCYTES # (AUTO) 0.7 x10^3/uL (0.3-0.8); MONOCYTES % (AUTO) 9.8 % (0.0-13.0); NEUTROPHILS % (AUTO) 66.2 % (42.0-75.0); RED BLOOD COUNT 3.57 X10^6/uL (3.5-5.4); RED CELL DISTRIBUTION WIDTH 14.7 % (11.6-16.5); WHITE BLOOD COUNT 7.5 X10^3/uL (3.6-10.0)
[2023-01-09] MEDS: SYNTHROID 125 mcg TAB PO SCH (05:47)
[2023-01-09] MEDS: NEURONTIN CAP 300 MG PO SCH ×3 (05:47→21:02)
[2023-01-09 05:57] LABS: ALANINE AMINOTRANSFERASE 8 Units/L (12-78); ALBUMIN 2.4 g/dL (3.4-5.0); ALKALINE PHOSPHATASE 116 Units/L (46-116); ASPARTATE AMINO TRANSFERASE 16 Units/L (15-37); BLOOD UREA NITROGEN 20 mg/dL (7-18); CALCIUM 8.3 mg/dL (8.5-10.1); CARBON DIOXIDE 26.7 mmol/L (21-32); CHLORIDE 105 mmol/L (98-107); COR CA(FOR HYPOALB) 9.6 mg/dL (8.5-10.1); CREATININE 1.31 mg/dL (0.55-1.02); SODIUM 137 mmol/L (136-145); TOTAL PROTEIN 5.4 g/dL (6.4-8.2); eGFR NON BLACK RACES 42 (>60)
[2023-01-09 06:00] LABS: MAGNESIUM 1.9 mg/dL (2.0-2.9); PHOSPHORUS 2.4 mg/dL (2.6-4.7)
[2023-01-09] MEDS: CLINIMIX IV SCH ×2 (09:47)
[2023-01-09] MEDS: TPN ELECTROLYTES IV SCH ×2 (09:47)
[2023-01-09] MEDS: CYMBALTA PO SCH (09:49)
[2023-01-09] MEDS: PLAQUENIL PO SCH ×2 (09:49→20:32)
[2023-01-09] MEDS: OXYBUTYNIN CHLORIDE ER PO SCH (09:49)
[2023-01-09] MEDS: ZYLOPRIM PO SCH (09:49)
[2023-01-09] MEDS: COZAAR PO SCH (09:49)
[2023-01-09] MEDS: TOPAMAX PO SCH ×2 (09:50→20:34)
[2023-01-09] MEDS: NS 1,000 ML IV 1,000 ML IV SCH ×2 (10:26→19:34)
[2023-01-09] MEDS: WELLBUTRIN XL 150 MG (DAILY) PO SCH (12:13)
[2023-01-09] MEDS: CRESTOR TAB 10 MG PO SCH (20:31)
[2023-01-09 21:43] VITALS: BMI 25.3
[2023-01-10] MEDS: NS 1,000 ML IV 1,000 ML IV SCH ×3 (03:55→20:25)
[2023-01-10] MEDS: NEURONTIN CAP 300 MG PO SCH ×3 (05:16→22:00)
[2023-01-10] MEDS: SYNTHROID 125 mcg TAB PO SCH (05:33)
[2023-01-10] MEDS ORDERED: MILK OF MAGNESIA PO PRN (05:45)
[2023-01-10] MEDS ORDERED: COLACE CAP 100 MG PO PRN (05:45)
[2023-01-10 06:14] LABS: BASOPHILS % (AUTO) 0.6 % (0.2-1.0); EOSINOPHILS # (AUTO) 0.2 x10^3/uL (0.0-0.2); EOSINOPHILS % (AUTO) 3.8 % (0.9-2.9); HEMATOCRIT 29.8 % (36.0-47.0); HEMOGLOBIN 9.9 g/dL (12.0-16.0); LYMPHOCYTES # (AUTO) 1.7 X10^3/uL (1.3-2.9); LYMPHOCYTES % (AUTO) 29.9 % (21.0-51.0); MEAN CORPUSCULAR HGB CONC 33.2 g/dL (33.0-35.0); MEAN CORPUSCULAR VOLUME 87.2 fL (80.0-100.0); MEAN PLATELET VOLUME 9.8 fL (7.4-11.0); MONOCYTES # (AUTO) 0.6 x10^3/uL (0.3-0.8); NEUTROPHILS # (AUTO) 3.1 x10^3/uL (2.2-4.8); NEUTROPHILS % (AUTO) 54.7 % (42.0-75.0); RED BLOOD COUNT 3.42 X10^6/uL (3.5-5.4); RED CELL DISTRIBUTION WIDTH 14.5 % (11.6-16.5); WHITE BLOOD COUNT 5.8 X10^3/uL (3.6-10.0)
[2023-01-10 06:23] LABS: PREALBUMIN 12.4 mg/dL (18-35.7)
[2023-01-10 06:32] LABS: ALANINE AMINOTRANSFERASE 9 Units/L (12-78); ALBUMIN 2.2 g/dL (3.4-5.0); ALKALINE PHOSPHATASE 102 Units/L (46-116); ASPARTATE AMINO TRANSFERASE 15 Units/L (15-37); BLOOD UREA NITROGEN 24 mg/dL (7-18); CALCIUM 8.2 mg/dL (8.5-10.1); CARBON DIOXIDE 25.6 mmol/L (21-32); CHLORIDE 105 mmol/L (98-107); COR CA(FOR HYPOALB) 9.6 mg/dL (8.5-10.1); CREATININE 1.27 mg/dL (0.55-1.02); SODIUM 137 mmol/L (136-145); eGFR NON BLACK RACES 43 (>60)
[2023-01-10] MEDS: TOPAMAX PO SCH ×2 (08:38→20:12)
[2023-01-10] MEDS: COZAAR PO SCH (08:38)
[2023-01-10] MEDS: WELLBUTRIN XL 150 MG (DAILY) PO SCH (08:39)
[2023-01-10] MEDS: ZYLOPRIM PO SCH (08:39)
[2023-01-10] MEDS: PLAQUENIL PO SCH ×2 (08:39→20:10)
[2023-01-10] MEDS: CYMBALTA PO SCH (08:40)
[2023-01-10] MEDS: OXYBUTYNIN CHLORIDE ER PO SCH (08:40)
[2023-01-10] MEDS: TPN ELECTROLYTES IV SCH ×2 (10:03)
[2023-01-10] MEDS: CLINIMIX IV SCH ×2 (10:03)
[2023-01-10] MEDS ORDERED: KLOR-CON PO PRN (19:47)
[2023-01-10] MEDS ORDERED: K-RIDER 10 MEQ/NS 100 ML 10 MEQ/100 ML BAG IV PRN (19:47)
[2023-01-10] MEDS ORDERED: K-DUR TAB 20 MEQ PO PRN (19:47)
[2023-01-10] MEDS: CRESTOR TAB 10 MG PO SCH (20:07)
[2023-01-11] MEDS: SYNTHROID 125 mcg TAB PO SCH (05:34)
[2023-01-11] MEDS: NEURONTIN CAP 300 MG PO SCH ×3 (05:34→22:00)
[2023-01-11 06:32] LABS: BASOPHILS % (AUTO) 0.4 % (0.2-1.0); EOSINOPHILS # (AUTO) 0.2 x10^3/uL (0.0-0.2); EOSINOPHILS % (AUTO) 3.2 % (0.9-2.9); HEMATOCRIT 27.9 % (36.0-47.0); HEMOGLOBIN 9.2 g/dL (12.0-16.0); LYMPHOCYTES # (AUTO) 1.5 X10^3/uL (1.3-2.9); LYMPHOCYTES % (AUTO) 22.2 % (21.0-51.0); MEAN CORPUSCULAR HGB CONC 33.1 g/dL (33.0-35.0); MEAN CORPUSCULAR VOLUME 87.6 fL (80.0-100.0); MEAN PLATELET VOLUME 10.1 fL (7.4-11.0); MONOCYTES # (AUTO) 0.8 x10^3/uL (0.3-0.8); MONOCYTES % (AUTO) 12.1 % (0.0-13.0); NEUTROPHILS # (AUTO) 4.1 x10^3/uL (2.2-4.8); NEUTROPHILS % (AUTO) 62.1 % (42.0-75.0); RED BLOOD COUNT 3.19 X10^6/uL (3.5-5.4); RED CELL DISTRIBUTION WIDTH 14.7 % (11.6-16.5); WHITE BLOOD COUNT 6.6 X10^3/uL (3.6-10.0)
[2023-01-11 06:40] LABS: ALBUMIN 2.2 g/dL (3.4-5.0); CALCIUM 8.1 mg/dL (8.5-10.1); CARBON DIOXIDE 26.5 mmol/L (21-32); COR CA(FOR HYPOALB) 9.5 mg/dL (8.5-10.1); CREATININE 1.35 mg/dL (0.55-1.02); MAGNESIUM 1.8 mg/dL (2.0-2.9)
[2023-01-11] MEDS: CLINIMIX IV SCH ×2 (09:32)
[2023-01-11] MEDS: COZAAR PO SCH (09:32)
[2023-01-11] MEDS: TPN ELECTROLYTES IV SCH ×2 (09:32)
[2023-01-11] MEDS: CYMBALTA PO SCH (09:32)
[2023-01-11] MEDS: OXYBUTYNIN CHLORIDE ER PO SCH (09:32)
[2023-01-11] MEDS: PLAQUENIL PO SCH ×2 (09:34→20:33)
[2023-01-11] MEDS: TOPAMAX PO SCH ×2 (09:34→20:31)
[2023-01-11] MEDS: WELLBUTRIN XL 150 MG (DAILY) PO SCH (09:35)
[2023-01-11] MEDS: ZYLOPRIM PO SCH (09:35)
[2023-01-11] MEDS: MAGNESIUM SULFATE 1 GRAM/100 mL PREMIX 1 G/100 ML BAG IV PRN ×2 (09:36→09:39)
[2023-01-11] MEDS: NS 1,000 ML IV 1,000 ML IV SCH ×2 (13:00→22:50)
[2023-01-11] MEDS: CRESTOR TAB 10 MG PO SCH (20:34)
[2023-01-12] MEDS: NEURONTIN CAP 300 MG PO SCH (05:50)
[2023-01-12 06:05] LABS: BASOPHILS % (AUTO) 0.4 % (0.2-1.0); EOSINOPHILS # (AUTO) 0.2 x10^3/uL (0.0-0.2); EOSINOPHILS % (AUTO) 3.1 % (0.9-2.9); HEMATOCRIT 26.9 % (36.0-47.0); HEMOGLOBIN 8.8 g/dL (12.0-16.0); LYMPHOCYTES # (AUTO) 1.5 X10^3/uL (1.3-2.9); LYMPHOCYTES % (AUTO) 19.5 % (21.0-51.0); MEAN CORPUSCULAR HEMOGLOBIN 28.8 pg (27.0-34.0); MEAN CORPUSCULAR HGB CONC 32.9 g/dL (33.0-35.0); MEAN CORPUSCULAR VOLUME 87.7 fL (80.0-100.0); MEAN PLATELET VOLUME 9.4 fL (7.4-11.0); MONOCYTES # (AUTO) 0.9 x10^3/uL (0.3-0.8); MONOCYTES % (AUTO) 11.6 % (0.0-13.0); NEUTROPHILS # (AUTO) 4.9 x10^3/uL (2.2-4.8); NEUTROPHILS % (AUTO) 65.4 % (42.0-75.0); RED BLOOD COUNT 3.06 X10^6/uL (3.5-5.4); RED CELL DISTRIBUTION WIDTH 14.8 % (11.6-16.5); WHITE BLOOD COUNT 7.5 X10^3/uL (3.6-10.0)
[2023-01-12] MEDS: SYNTHROID 125 mcg TAB PO SCH (06:06)
[2023-01-12 06:17] LABS: ALANINE AMINOTRANSFERASE 6 Units/L (12-78); ALBUMIN 2.1 g/dL (3.4-5.0); ALKALINE PHOSPHATASE 102 Units/L (46-116); ASPARTATE AMINO TRANSFERASE 12 Units/L (15-37); BLOOD UREA NITROGEN 28 mg/dL (7-18); CARBON DIOXIDE 25.7 mmol/L (21-32); CHLORIDE 107 mmol/L (98-107); COR CA(FOR HYPOALB) 9.5 mg/dL (8.5-10.1); MAGNESIUM 2.3 mg/dL (2.0-2.9); SODIUM 139 mmol/L (136-145); TOTAL PROTEIN 4.9 g/dL (6.4-8.2); TRIGLYCERIDES 67 mg/dL (0-150); eGFR NON BLACK RACES 42 (>60)
[2023-01-12 08:16] VITALS: BP 149/67
[2023-01-12] MEDS: COZAAR PO SCH (08:42)
[2023-01-12] MEDS: OXYBUTYNIN CHLORIDE ER PO SCH (08:42)
[2023-01-12] MEDS: WELLBUTRIN XL 150 MG (DAILY) PO SCH (08:43)
[2023-01-12] MEDS: PLAQUENIL PO SCH (08:43)
[2023-01-12] MEDS: TOPAMAX PO SCH (08:43)
[2023-01-12] MEDS: CYMBALTA PO SCH (08:44)
[2023-01-12] MEDS: ZYLOPRIM PO SCH (08:44)
== END 2023-01-12 11:40 | disposition home health service (06) | DRG 948 ==
LOC: ER 11:13 → MED/SURG 11:13
PROVIDERS: ADMIT Internal Medicine; ATTEND Internal Medicine